=== PATIENT | male | born 2000 | race Hispanic/Latino ===

== ENCOUNTER 2024-01-22 21:48 | Emergency (ER) | payer BC, SELFPAY ==
[2024-01-22] MEDS ORDERED: Loratadine 10 MG TAB ONE (22:05)
[2024-01-22] MEDS ORDERED: predniSONE 20 MG TAB ONE (22:05)
[2024-01-22] MEDS ORDERED: diphenhydrAMINE 50 MG/ML VIAL ONE (22:05)
[2024-01-22] MEDS ORDERED: Sodium Chloride 0.9% 1,000 ML ONE (22:06)
[2024-01-22] MEDS ORDERED: Famotidine/PF 20 mg/2ml Vial ONE (23:00)
== END 2024-01-22 23:51 | disposition home or self-care (01) ==
LOC: NAV ERS 21:48
DX: T78.1XXA Other adverse food reactions, not elsewhere classified, initial encounter (principal); L50.9 Urticaria, unspecified
CPT/HCPCS: 96374; 96375; J1200; J3490; J7512